=== PATIENT | male | born 1980 | race Caucasian/White ===

== ENCOUNTER 2016-11-23 19:16 | Emergency (ER) | payer BC ==
[2016-11-23 19:18] VITALS: BP 126/90; PULSE 65; RESP 16; TEMP 98.6; O2SAT 98
[2016-11-23] MEDS ORDERED: KETOROLAC TROMETHAMINE 60 MG/2 ML (IM) VIAL IM ONE (20:30)
--- NOTE | 2016-11-23 20:34 | PD ---
HPI Chief Complaint: Injury Time Seen by Provider: 20:30 Travel History International Travel<30 days: No Contact w/Intl Traveler<30days: No Traveled to known affect area: No History of Present Illness HPI Patient is a 36-year-old male presenting to the emergency department for evaluation of right ankle pain. He was at [place] trampoline park when he rolled his ankle. He reports the pain is a 10 out of 10 if he tries to ambulate, he has no pain at rest. He has not taken anything to alleviate the pain. Injury occurred approximately 2-1/2 hours ago. He denies any numbness, weakness. He describes his pain as aching and throbbing. [facility] Past Medical History Medical History: Denies Significant Hx ?: Not Past Surgical History Surgical History: No Previous Surgery Social History Alcohol Use: Yes Tobacco Use: No Substance Use: No Allergies-Medications (Allergen,Severity, Reaction): Coded Allergies: No Known Allergies (Unverified , 11/23/16) Reported Meds & Prescriptions Reported Meds & Active Scripts Active Flexeril (Cyclobenzaprine HCl) 10 Mg Tab 10 Mg PO TID PRN 10 Days Ibuprofen 800 Mg Tab 800 Mg PO Q6HR PRN Review of Systems Except as stated in HPI: all other systems reviewed are Neg Musculoskeletal: Positive: Myalgias, Limited ROM, Edema, Pain Skin: Positive Change in Pigmentation Physical Exam Narrative GENERAL: Well-nourished, well-developed patient. SKIN: Focused skin assessment warm/dry. HEAD: Normocephalic. EYES: No scleral icterus. No injection or drainage. NECK: Supple, trachea midline. No JVD or lymphadenopathy. CARDIOVASCULAR: Regular rate and rhythm without murmurs, gallops, or rubs. RESPIRATORY: Breath sounds equal bilaterally. No accessory muscle use. GASTROINTESTINAL: Abdomen soft, non-tender, nondistended. MUSCULOSKELETAL: No cyanosis, edema noted to lateral aspect of right ankle and right foot. Mild ecchymosis noted over the same area. Positive pedal pulses, brisk less than 3 second capillary refill. BACK: Nontender without obvious deformity. No CVA tenderness. Data Data Last Documented VS Vital Signs Date Time Temp Pulse Resp B/P Pulse Ox O2 Delivery O2 Flow Rate FiO2 11/23/16 19:18 98.6 65 16 126/90 98 Room Air Orders Ankle, Complete ([id number]) (11/23/16 ) Foot, Complete ([id number]) (11/23/16 ) Ketorolac Inj (Toradol Inj) (11/23/16 20:30) Crutches (11/23/16 21:24) ^ Ton Bandage (11/23/16 21:24) MDM Medical Decision Making Medical Screen Exam Complete: Yes Emergency Medical Condition: Yes Interpretation(s) Vital Signs Date Time Temp Pulse Resp B/P Pulse Ox O2 Delivery O2 Flow Rate FiO2 11/23/16 19:18 98.6 65 16 126/90 98 Room Air Differential Diagnosis Sprain versus strain versus fracture versus other Narrative Course Patient is a 36-year-old male presenting with right ankle pain that occurred while jumping on a trampoline. Patient's vital signs are stable, he is neurovascularly intact, imaging ordered and pending. X-ray of the right ankle and right foot show no acute fracture or abnormality. Patient will be given crutches, ankle be wrapped in an Ton wrap. Patient is encouraged to rest, ice, elevate extremity. He was encouraged to follow-up with his primary doctor. He is encouraged to return to emergency department for any new or worsening symptoms. Patient verbalized understanding of instructions. Patient stable for discharge. Diagnosis Primary Impression: Ankle sprain Qualified Code: S93.401A - Sprain of right ankle, unspecified ligament, initial encounter Referrals: Primary Care Physician Patient Instructions: Ankle Exercises (GEN), Ankle Sprain (ED), General Instructions Departure Forms: Tests/Procedures, Work Release Special Instructions: Nonweightbearing until cleared by primary care provider. Please allow patient to utilize motorized scooter. Additional Instructions: Follow-up with your primary doctor Rest, ice, elevate extremity Take medications as directed Continue range of motion exercises Return to emergency department for any new or worsening symptoms Med/Other Pt SpecificInfo: Prescription(s) given Scripts Cyclobenzaprine (Flexeril)10 Mg Tab10 Mg PO TID PRN (MUSCLE SPASM) 10 Days Ref 0 Prov:Keyla Story 11/23/16 Ibuprofen 800 Mg Enn286 Mg PO Q6HR PRN (PAIN) #40 TAB Ref 0 Prov:Keyla Story 11/23/16 Disposition: 01 DISCHARGE HOME Condition: Stable Keyla Story Nov 23, 2016 20:33
--- NOTE | 2016-11-23 21:17 | RADRPT ---
EXAM DATE/TIME: 11/23/2016 20:49 [facility] COMPARISON: No previous studies available for comparison. INDICATIONS : Right ankle pain after patient fell from trampoline today MEDICAL HISTORY : None. SURGICAL HISTORY : None. ENCOUNTER: Initial ACUITY: 1 day PAIN SCORE: 10/10 LOCATION: Right entire ankle FINDINGS: Three view exam was performed of the right ankle. The bony structures are in normal alignment. No e vidence of fracture, dislocation, or soft tissue swelling. The ankle mortise is intact. No radiopaq ue foreign bodies are seen. Bony mineralization is normal. CONCLUSION: Normal examination for a patient of this age. Juan Manuel Rhodes MD on November 23, 2016 at 21:13 Board Certified Radiologist. This report was verified electronically.
--- NOTE | 2016-11-23 21:18 | RADRPT ---
EXAM DATE/TIME: 11/23/2016 20:51 [facility] COMPARISON: No previous studies available for comparison. INDICATIONS : Right foot pain post fall from trampoline today MEDICAL HISTORY : None. SURGICAL HISTORY : None. ENCOUNTER: Initial ACUITY: 1 day PAIN SCORE: 10/10 LOCATION: Right entire foot FINDINGS: Three view examination of the right foot demonstrates no soft tissue swelling, dislocation, or fractu re. The tarsal bones appear intact. The interphalangeal and metatarsophalangeal joints are intact. The calcaneus is intact. Bony mineralization is normal. CONCLUSION: Normal examination for a patient of this age. Juan Manuel Rhodes MD on November 23, 2016 at 21:15 Board Certified Radiologist. This report was verified electronically.
[2016-11-23] MEDS ORDERED: IBUP800T23 PO (21:24)
[2016-11-23] MEDS ORDERED: CYCL1TAB29 PO (21:24)
== END 2016-11-23 21:52 | disposition home or self-care (01) ==
LOC: NEPD 19:16
DX: S93.401A Sprain of unspecified ligament of right ankle, initial encounter (principal); X50.0XXA Overexertion from strenuous movement or load, initial encounter; Y93.44 Activity, trampolining; Y92.838 Other recreation area as the place of occurrence of the external cause
CPT/HCPCS: 73610; 73630; 96372; 99284; E0113; J1885; L3260